=== PATIENT | male | born 1995 | race Caucasian/White ===

== ENCOUNTER 2017-05-15 11:31 | Emergency (ER) | payer BC ==
[2017-05-15 11:50] VITALS: BP 136/71
--- NOTE | 2017-05-15 11:57 | UC ---
Laceration HPI - HPI Summary HPI Summary: patient was hit with a golf ball in the lower lip. happened 2 hours ago - History Of Current Complaint Chief Complaint: UCLaceration Stated Complaint: LIP LACERATION Time Seen by Provider: 05/15/17 11:38 Hx Obtained From: Patient Laceration Location: Face Mechanism Of Injury: Blunt Trauma Onset/Duration: Sudden Onset, Lasting Hours Severity: Moderate - Allergies/Home Medications Allergies/Adverse Reactions: Allergies Allergy/AdvReac Type Severity Reaction Status Date / Time Amoxicillin Allergy Mild Hives Verified 05/15/17 11:45 Home Medications: Home Medications NK [No Home Medications Reported] 05/15/17 [History Confirmed 05/15/17] PMH/Surg Hx/FS Hx/Imm Hx Previously Healthy: Yes - Surgical History Surgical History: None - Family History Known Family History: Positive: None, Hypertension Negative: Cardiac Disease - Social History Alcohol Use: Occasionally Substance Use Type: None Smoking Status (MU): Current Some Day Smoker Type: Cigarettes, Smokeless Tobacco Amount Used/How Often: occasional use Length of Time of Smoking/Using Tobacco: 1 MO - Immunization History Vaccination Up to Date: Yes Review of Systems Constitutional: Negative Skin: Other - laceration Eyes: Negative ENT: Negative Respiratory: Negative Cardiovascular: Negative Gastrointestinal: Negative Genitourinary: Negative Motor: Negative Neurovascular: Negative Musculoskeletal: Negative Neurological: Negative Psychological: Negative All Other Systems Reviewed And Are Negative: Yes Physical Exam Triage Information Reviewed: Yes Appearance: Well-Appearing, Well-Nourished, Pain Distress Vital Signs: Initial Vital Signs Temp 97.5 F 05/15/17 11:46 Pulse 57 05/15/17 11:46 Resp 18 05/15/17 11:46 BP 136/71 05/15/17 11:46 Pulse Ox 100 05/15/17 11:46 Eye Exam: Normal ENT Exam: Normal Dental Exam: Normal Neck exam: Normal Respiratory Exam: Normal Cardiovascular Exam: Normal Abdominal Exam: Normal Bowel Sounds: Positive: Present Musculoskeletal Exam: Normal Neurological Exam: Normal Psychological Exam: Normal Skin: Positive: Other - 1 cm laceration in the center of lower leg Laceration Repair - Laceration Repair 1 Laceration Size After Repair: Length (cm) - 1cm Modified For Repair: No Cleansing Completed Via Routine Prep: Yes Irrigation With Pressure Irrigation Device: No Closure Method: Single Layer Suture Type: Nylon - 4 sutures, Laceration Course/Dx - Course/Dx Course Of Treatment: hx obtained, exam performed ,meds reviewed, laceration repaired, ibuprofen given - Differential Dx - Laceration/Wound Differental Diagnoses: Joint Infection, Laceration Provider Diagnoses: laceration. dental fracture Discharge - Discharge Plan Condition: Stable Disposition: HOME Patient Education Materials: Laceration (ED) Additional Instructions: 1. Keep the area clean and dry 2. Take the medication as prescribed 3. keep the area moist
[2017-05-15] MEDS ORDERED: Ibuprofen TAB* 600 MG PO ONE (12:24)
== END 2017-05-15 12:44 | disposition home or self-care (01) ==
LOC: UCCORT 11:31
DX: S01.511A Laceration without foreign body of lip, initial encounter (principal); S02.5XXA Fracture of tooth (traumatic), initial encounter for closed fracture; W21.04XA Struck by golf ball, initial encounter; Y93.9 Activity, unspecified; Y92.9 Unspecified place or not applicable; Z88.0 Allergy status to penicillin; Z72.0 Tobacco use
CPT/HCPCS: 12011; 99212; A9270-GY; G0463

== ENCOUNTER 2018-10-27 10:07 | Emergency (ER) | payer BC ==
[2018-10-27 10:38] VITALS: BP 137/79
--- NOTE | 2018-10-27 11:15 | UC ---
Throat Pain/Nasal Frankie HPI - HPI Summary HPI Summary: 23-year-old male presents with 6 day history of sore throat that has progressively worsened over the last 2 days. Associated with some chills and left ear pain. Also reports several canker sores to his inner lower lip and gums that make it difficult to eat d/t pain. Denies fever, headache, nasal congestion, dysphagia, chest pain, shortness of breath, cough, abdominal pain, nausea, vomiting, or diarrhea. - History of Current Complaint Chief Complaint: UCGeneralIllness Stated Complaint: SORES INSIDE MOUTH Time Seen by Provider: 10/27/18 10:50 Hx Obtained From: Patient Pain Intensity: 8 - Allergies/Home Medications Allergies/Adverse Reactions: Allergies Allergy/AdvReac Type Severity Reaction Status Date / Time amoxicillin Allergy Intermediate Hives Verified 10/27/18 10:39 Home Medications: Home Medications NK [No Home Medications Reported] 10/27/18 [History Confirmed 10/27/18] PMH/Surg Hx/FS Hx/Imm Hx Previously Healthy: Yes - Surgical History Surgical History: None - Family History Known Family History: Positive: Hypertension - Social History Occupation: Employed Full-time Lives: With Family Alcohol Use: Occasionally Substance Use Type: None Smoking Status (MU): Current Some Day Smoker Type: Cigarettes, Smokeless Tobacco Amount Used/How Often: occasional use Length of Time of Smoking/Using Tobacco: 1 MO - Immunization History Vaccination Up to Date: Yes Review of Systems All Other Systems Reviewed And Are Negative: Yes Constitutional: Positive: Chills, Fatigue. Negative: Fever Skin: Negative: Rash Eyes: Negative: Drainage, Eye Redness ENT: Positive: Sore Throat, Ear Ache, Other - Oral lesions. Negative: Nasal Discharge, Sinus Congestion, Sinus Pain/Tenderness Respiratory: Negative: Shortness Of Breath, Cough Cardiovascular: Negative: Palpitations, Chest Pain Gastrointestinal: Negative: Abdominal Pain, Vomiting, Diarrhea, Nausea Is Patient Immunocompromised?: No Physical Exam - Summary Physical Exam Summary: GENERAL APPEARANCE: Well developed, well nourished, alert and cooperative, and appears to be in no acute distress. EYES: Conjunctiva clear. No discharge. EARS: Bilateral external auditory canals with cerumen impaction. Unable to visualize TMs. NOSE: No nasal discharge. THROAT: Multiple aphthous ulcers noted to inner lower lip and lower gingiva. Mild pharyngeal erythema. No tonsilar inflammation, swelling, exudate, or lesions. NECK: Neck supple, non-tender without lymphadenopathy. CARDIAC: Normal S1 and S2. No S3, S4 or murmurs. Rhythm is regular. There is no peripheral edema, cyanosis or pallor. Extremities are warm and well perfused. Capillary refill is less than 2 seconds. LUNGS: Clear to auscultation and percussion without rales, rhonchi, wheezing or diminished breath sounds. ABDOMEN: Positive bowel sounds. Soft, nondistended, nontender. No guarding or rebound. No masses or hepatosplenomegally. SKIN: Skin normal color, texture and turgor with no lesions or eruptions. Triage Information Reviewed: Yes Vital Signs: Initial Vital Signs Temp 97.5 F 10/27/18 10:35 Pulse 104 10/27/18 10:35 Resp 20 10/27/18 10:35 BP 137/79 10/27/18 10:35 Pulse Ox 99 10/27/18 10:35 Vital Signs Reviewed: Yes Diagnostics - Laboratory Diagnostic Studies Completed/Ordered: rapid strep negative Re-Evaluation - Re-Evaluation First Eval Re-Evaluation Time: 11:35 Change: Improved - Post ear irrigation bilateral external auditory canals clear. TMs intact, opaque, with good cone of light. Throat Pain/Nasal Course/Dx - Course Course Of Treatment: 23-year-old male presents with 6 day history of sore throat that has progressively worsened over the last 2 days. Associated with some chills and left ear pain. Also reports several canker sores to his inner lower lip and gums that make it difficult to eat d/t pain. Denies fever, headache, nasal congestion, dysphagia, chest pain, shortness of breath, cough, abdominal pain, nausea, vomiting, or diarrhea. Afebrile. VSS. Exam revealed Multiple aphthous ulcers noted to inner lower lip and lower gingiva. Mild pharyngeal erythema without tonsilar inflammation, exudate, or cervical lymphadenopathy. Patient had bilateral cerumen impaction which was cleared with irrigation. Bilateral TMs normal. Rapid strep negative. Suspect symptoms are viral. Recommend symptomatic treatment with follow up with PCP in 5 days if symptoms persist. Warning symptoms reviewed. Verbalizes understanding and agrees with POC. - Differential Dx/Diagnosis Differential Diagnosis/HQI/PQRI: Otitis Media, Pharyngitis, Tonsillitis, URI Provider Diagnosis: Aphthous ulcer of mouth, Impacted cerumen of both ears, Elevated blood pressure reading, Viral pharyngitis Discharge - Sign-Out/Discharge Documenting (check all that apply): Patient Departure All imaging exams completed and their final reports reviewed: No Studies - Discharge Plan Condition: Stable Disposition: HOME Patient Education Materials: Pharyngitis (ED), Cerumen Impaction (ED), Canker Sores (ED) Referrals: Conner Suárez MD [Primary Care Provider] - 5 Days (If symptoms persist.) Additional Instructions: Your rapid strep test in the clinic today was negative. Your symptoms are likely from a viral infection. Viral infections do not respond to antibiotics and are limited to the treatment of symptoms. Viral infections typically run their course in 7-10 days. Drink plenty of fluids to avoid dehydration especially if you are running any fever. Use salt water gargles several times a day. Take over the counter acetaminophen (Tylenol) or ibuprofen (Advil, Motrin) according to directions as needed for pain or fever. You may also use Chloraseptic spray or Cepacol lonzenges according to directions which contain a numbing medication and can provide some temporary relief from your sore throat. Be sure to do good oral hygiene to help with the canker sores. You may use an over the counter numbing gel such as Anbesol or Orajel for pain relief. Your ears were flushed and a large amount of ear wax was removed. Make sure you are not putting anything in your ears as you can push the wax deep into the ear canal causing the blockage or even injury to the ear drum. Follow up with your primary care provider in 5-7 days if symptoms persist. Your blood pressure was mildly elevated in the clinic today. It is recommended that you follow up with your primary care provider to have this rechecked. Seek immediate medical attention in the emergency room if you have fever greater than 100.5 F despite taking acetaminophen or ibuprofen, are unable to swallow or develop drooling, are unable to open your mouth fully, are unable to eat or drink, have pain that is not relieved with over the counter pain medication, or have any difficulty breathing. - Billing Disposition and Condition Condition: STABLE Disposition: Home
== END 2018-10-27 11:47 | disposition home or self-care (01) ==
LOC: UCCORT 10:07
DX: K12.0 Recurrent oral aphthae (principal); H61.23 Impacted cerumen, bilateral; R03.0 Elevated blood-pressure reading, without diagnosis of hypertension; J02.9 Acute pharyngitis, unspecified; Z88.0 Allergy status to penicillin; F17.210 Nicotine dependence, cigarettes, uncomplicated
CPT/HCPCS: 87651; 99213; G0463